=== PATIENT | female | born 1970 | race Caucasian/White ===

== ENCOUNTER 2016-09-23 09:20 | Day surgery (SDC) | payer BC ==
[2016-09-18 12:45] VITALS: BMI 29.2
[2016-09-23] MEDS ORDERED: PROPOFOL 20 ML ONE (09:37)
[2016-09-23 09:43] VITALS: TEMP 98.8
[2016-09-23] MEDS ORDERED: GLYCOPYRROLATE 0.2 MG/1 ML VIAL ONE (11:06)
[2016-09-23 12:04] VITALS: BP 108/70; PULSE 60
--- NOTE | 2016-09-24 12:54 | PATH ---
Surgical Pathology Report Patient Name: ELLI MORLEY [facility]. Rec. #: [id number] /Age/Gender: 1970 (Age: 46) / F Account: [id number] Location: [facility]-ENDOSCOPY Taken: 09/23/2016 Received: 09/23/2016 Reported: 09/24/2016 Physicians: Lj Winkler M.D. Specimen(s) Received A: BX DUODENUM B: BX ANTRUM Clinical History GERD Rule out celiac disease, mild gastritis Final Diagnosis A. DUODENUM, BIOPSY: DUODENAL MUCOSA WITH NO PATHOLOGIC FINDINGS. Note: Features suggestive of celiac disease are not identified in this biopsy. B. ANTRUM, BIOPSY: MILD CHRONIC GASTRITIS. IMMUNOSTAIN IS NEGATIVE FOR H. PYLORI ORGANISMS. Electronically Signed Zoya Huizar M.D. Gross Description A. Received in formalin, labeled "duodenum" are 2 chiu, irregular portions of soft tissue averaging 0.5 cm. in greatest dimension. The specimens are submitted in toto in one cassette. B. Received in formalin, labeled "antrum" are 2 chiu, irregular portions of soft tissue measuring 0.6 and 0.7 cm. in greatest dimension. The specimens are submitted in toto in one cassette. 09/23/2016 saudi09/23/2016
== END 2016-09-23 11:55 | disposition home or self-care (01) ==
LOC: FASU-ENDO 09:20
PROVIDERS: ATTEND Internal Medicine Gastroenterology
PROC: 0DB98ZX Excision of Duodenum, Via Natural or Artificial Opening Endoscopic, Diagnostic (ICD-10-PCS; principal; 2016-09-23 11:05)
PROC: 0DB68ZX Excision of Stomach, Via Natural or Artificial Opening Endoscopic, Diagnostic (ICD-10-PCS; 2016-09-23 11:05)
DX: K29.50 Unspecified chronic gastritis without bleeding (principal); R10.13 Epigastric pain
CPT/HCPCS: 84703; 88305-TC; 88342-TC